=== PATIENT | female | born 1985 | race Two or more races ===

== ENCOUNTER 2018-04-20 20:55 | Observation (INO) | payer MEDICAID ==
[~2018-04-20] VITALS: Ht 152.4 cm; Wt 69.3 kg
[~2018-04-20 20:55] MED LIST: ASPI-496 PO
[2018-04-20 21:39] LABS: BASOPHILS # (AUTO) 0.06 x10^3/uL (0-0.1); BASOPHILS % (AUTO) 1 % (0-1); EOSINOPHILS # (AUTO) 0.08 x10^3/uL (0-0.4); EOSINOPHILS % (AUTO) 1 % (1-7); LYMPHOCYTES # (AUTO) 1.44 x10^3/uL (1-3.4); LYMPHOCYTES % (AUTO) 15 % (22-44); MD NO; MEAN CORPUSCULAR HEMOGLOBIN 32.7 pg (27.0-34.8); MEAN CORPUSCULAR HGB CONC 34.3 g/dL (32.4-35.8); MEAN CORPUSCULAR VOLUME 95.3 fL (80-100); MEAN PLATELET VOLUME 7.3 fL (7.4-10.4); MONOCYTES # (AUTO) 0.58 x10^3/uL (0.2-0.8); MONOCYTES % (AUTO) 6 % (2-9); NEUTROPHILS # (AUTO) 7.44 x10^3/uL (1.8-6.8); NEUTROPHILS % (AUTO) 78 % (42-75); PLATELET COUNT 317 x10^3/uL (130-400); RED BLOOD COUNT 4.69 x10^6/uL (3.82-5.3); RED CELL DISTRIBUTION WIDTH 13.6 % (9.6-15.2)
[2018-04-20 21:48] LABS: ALANINE AMINOTRANSFERASE 22 U/L (12-78); ALBUMIN 3.4 g/dL (3.4-5.0); ANION GAP 9 mmol/L (5-15); CALCIUM 8.7 mg/dL (8.5-10.1); CHLORIDE 107 mmol/L (98-107); SALICYLATE LEVEL 4.2 mg/dL (2.8-20.0)
[2018-04-20 22:05] LABS: ALKALINE PHOSPHATASE 77 U/L (45-117); BILIRUBIN,TOTAL 0.3 mg/dL (0.2-1.0)
[2018-04-20 22:09] LABS: ACETAMINOPHEN < 2 mcg/mL (10-30)
[2018-04-20 23:14] LABS: AMPHETAMINE SCREEN, URINE Positive (Negative); BARBITURATE SCREEN, URINE Negative (Negative); BENZODIAZEPINE SCREEN, URINE Negative (Negative); CANNABINOID SCREEN, URINE Negative (Negative); COCAINE SCREEN, URINE Negative (Negative); METHADONE SCREEN, URINE Negative (Negative); OPIATE SCREEN, URINE Negative (Negative)
[2018-04-21] MEDS ORDERED: ACETAMINOPHEN 325 MG TABLET PO PRN (08:30)
[2018-04-21] MEDS ORDERED: ZIPRASIDONE 20MG CAPSULE PO PRN (08:30)
[2018-04-21] MEDS ORDERED: POLYETHYLENE GLYCOL 17 GM PACKET PO PRN (08:30)
[2018-04-21] MEDS ORDERED: ONDANSETRON ODT 4 MG PO PRN (08:30)
[2018-04-21] MEDS ORDERED: ZIPRASIDONE 20 MG INJ IM PRN (08:30)
[2018-04-21] MEDS ORDERED: BISACODYL 10 MG SUPP PR PRN (08:30)
[2018-04-21] MEDS ORDERED: DOCUSATE 100 MG CAPSULE PO PRN (08:30)
[2018-04-21] MEDS: PRENATAL VIT/IRON/FA 1 EACH TABLET PO SCH ×2 (10:00→11:20)
[2018-04-21 11:13] VITALS: BP 102/58
[2018-04-21 12:41] LABS: MICROSCOPIC INDICATED
[2018-04-21 12:53] LABS: CULTURE INDICATED? YES
[2018-04-21 13:41] VITALS: BP 102/58
[2018-04-21 19:25] VITALS: BP 105/66
[2018-04-22 07:30] VITALS: BP 95/66
[2018-04-22] MEDS ORDERED: SULFAMETH./TRIMETHOPRIM DS 800MG/160MG TABLET PO SCH ×2 (16:08→21:00)
[2018-04-22] MEDS ORDERED: SULF-169 PO (16:35)
[2018-04-22] MEDS ORDERED: DOCU-131 PO (16:35)
[2018-04-22] MEDS ORDERED: ONDA4TAB13 PO (16:35)
[2018-04-22] MEDS ORDERED: Prenatal Vit/Iron/Fa PO (16:35)
[2018-04-22] MEDS ORDERED: ACET325T14 PO (16:35)
== END 2018-04-22 18:20 ==
LOC: ED 22:32 → EDIP 04-21 08:12 → 2N 04-21 11:03
PROVIDERS: ADMIT Hospitalist; ATTEND Hospitalist
DX: O23.41 Unspecified infection of urinary tract in pregnancy, first trimester (principal); O99.321 Drug use complicating pregnancy, first trimester; O99.331 Smoking (tobacco) complicating pregnancy, first trimester; O99.341 Other mental disorders complicating pregnancy, first trimester; O9A.211 Injury, poisoning and certain other consequences of external causes complicating pregnancy, first trimester; F15.159 Other stimulant abuse with stimulant-induced psychotic disorder, unspecified; Z79.899 Other long term (current) drug therapy; Z3A.11 11 weeks gestation of pregnancy
CPT/HCPCS: 36415; 76815; 80053; 80307; 80329; 81001; 84702; 84703; 85025; 87077; 87086; 87186; 99285; G0378; G0480

== ENCOUNTER 2018-06-01 22:33 | Emergency (ER) | payer MEDICAID ==
[~2018-06-01] VITALS: Ht 170.2 cm; Wt 71.3 kg
[~2018-06-01 22:33] MED LIST changes: +ACET325T14 PO; +DOCU-131 PO; +ONDA4TAB13 PO; +Prenatal Vit/Iron/Fa PO; +SULF-169 PO
[2018-06-01 22:36] VITALS: BP 116/50
[2018-06-01] MEDS ORDERED: KETOROLAC 30 MG/1 ML ONE (23:22)
[2018-06-01] MEDS: KETOROLAC 30 MG/1 ML IM ONE ×2 (23:25→23:31)
[2018-06-01 23:36] LABS: HCG UR SG 1.035 (1.003-1.030); MICROSCOPIC NOT IND
[2018-06-01 23:38] LABS: CULTURE INDICATED? NO
== END 2018-06-02 00:05 | disposition home or self-care (01) ==
LOC: ED 23:34
DX: O26.891 Other specified pregnancy related conditions, first trimester (principal); M54.6 Pain in thoracic spine; Z3A.01 Less than 8 weeks gestation of pregnancy
CPT/HCPCS: 72072; 81003; 81025; 99285; J1885

== ENCOUNTER 2018-09-30 12:14 | Emergency (ER) | payer MEDICAID, OTHER ==
[2018-09-30] MEDS ORDERED: PREN1TAB28 PO (12:28)
--- NOTE | 2018-09-30 12:29 | NUR ---
PB BIB EMS FOR NAUSEA UPON AWAKENING THIS AM (RESOLVED NOW) AND CONCERNS OF LOGAN/ROSS CONTRACTIONS. PER PATIENT SHE IS HAVING CONTRACTIONS APPROX 1 PER HOUR. PT HAS COMES FROM [facility] WITH STAFF MEMBER WITH HER. Addendum: 09/30/18 at 1229 by GHISLAINE PATIENT IS ON A LEGAL HOLD AND WAS ADMITTED TO [facility] FOR INABILITY TO CARE FOR SELF, PSYCHOSOS. PT DENIES SI/HI.
--- NOTE | 2018-09-30 12:38 | NUR ---
SBAR RPT REC'D FROM IVET RICK AND ASSUMED PT CARE. DR KENDALL AT BEDSIDE. [facility] CHART REVIEWED. PTS ANSWERS TO QUESTIONS REGARDING SUBSTANCE ABUSE ARE ALL NEGATIVE WHICH IS IN CONTRAST TO [facility] DOCUMENTATION. [facility] STAFF MEMBER SITTER AT DOORWAY. PT IS ON LEGAL HOLD.
--- NOTE | 2018-09-30 12:42 | NUR ---
CALLED L/D TO REQUEST AN RN TO COME DOWN TO THE ED TO ASSESS HEART TONES. L/D TO SEND RN.
--- NOTE | 2018-09-30 13:12 | NUR ---
VANESSAAR RPT TO IVET PANCHAL
--- NOTE | 2018-09-30 13:14 | NUR ---
DARION FROM L&D [facility] PT HAS BEEN CLEARED FROM THEIR STANDPOINT AND IS OKAY TO STAY IN ED. PER DR. KENDALL PT HAS BEEN MEDICALLY CLEARED. PT TO RETURN TO [facility].
[2018-09-30 13:48] LABS: BASOPHILS # (AUTO) 0.01 x10^3/uL (0-0.1); BASOPHILS % (AUTO) 0 % (0-1); EOSINOPHILS # (AUTO) 0.03 x10^3/uL (0-0.4); EOSINOPHILS % (AUTO) 1 % (1-7); LYMPHOCYTES # (AUTO) 0.74 x10^3/uL (1-3.4); LYMPHOCYTES % (AUTO) 11 % (22-44); MD NO; MEAN CORPUSCULAR HEMOGLOBIN 30.6 pg (27.0-34.8); MEAN CORPUSCULAR VOLUME 92.5 fL (80-100); MONOCYTES # (AUTO) 0.49 x10^3/uL (0.2-0.8); MONOCYTES % (AUTO) 7 % (2-9); NEUTROPHILS # (AUTO) 5.45 x10^3/uL (1.8-6.8); NEUTROPHILS % (AUTO) 81 % (42-75); PLATELET COUNT 318 x10^3/uL (130-400); RED BLOOD COUNT 3.49 x10^6/uL (3.82-5.3); RED CELL DISTRIBUTION WIDTH 15.7 % (9.6-15.2)
[2018-09-30 13:53] VITALS: BP 104/62
--- NOTE | 2018-09-30 13:53 | NUR ---
REPORT TO IVET ADAIR.
[2018-09-30] MEDS ORDERED: AZITHROMYCIN 250 MG TABLET PO ONE (14:00)
[2018-09-30] MEDS ORDERED: ALBUTEROL/IPRATROPIUM 2.5MG/0.5MG, 3 ML NPPB SCH (14:00)
--- NOTE | 2018-09-30 14:06 | NUR ---
REPORT GIVEN TO CHRISTINE AT [facility].
--- NOTE | 2018-09-30 15:26 | NUR ---
PT AMB IN ROOM, SITTER AT DOOR. PT PROVIDED WITH MEAL. AWAITING TRANSPORT BACK TO [facility].
--- NOTE | 2018-09-30 15:31 | NUR ---
SPOKE WITH LEOBARDO AT [facility]
--- NOTE | 2018-09-30 18:38 | NUR ---
EMS HERE TO TRANSPORT PT BACK TO [facility]. PT LEFT AMB WITH [facility] SITTER. PT COOPERATIVE CARE.
== END 2018-09-30 18:41 ==
LOC: ED 12:59
DX: O26.893 Other specified pregnancy related conditions, third trimester (principal); Z3A.32 32 weeks gestation of pregnancy; R10.30 Lower abdominal pain, unspecified; R11.2 Nausea with vomiting, unspecified; Z72.9 Problem related to lifestyle, unspecified
CPT/HCPCS: 36415; 59025; 85025; 93005; 99284; 99285

== ENCOUNTER 2019-08-25 19:06 | Emergency (ER) | payer MEDICAID, OTHER ==
[~2019-08-25] VITALS: Ht 170.2 cm; Wt 90.0 kg
[~2019-08-25 19:06] MED LIST changes: +PREN1TAB28 PO
[2019-08-25 19:10] VITALS: BP 128/79
[2019-08-25 19:26] LABS: BASOPHILS # (AUTO) 0.02 x10^3/uL (0-0.1); BASOPHILS % (AUTO) 0 % (0-1); EOSINOPHILS # (AUTO) 0.08 x10^3/uL (0-0.4); EOSINOPHILS % (AUTO) 1 % (1-7); LYMPHOCYTES # (AUTO) 0.84 x10^3/uL (1-3.4); LYMPHOCYTES % (AUTO) 11 % (22-44); MD NO; MEAN CORPUSCULAR HEMOGLOBIN 32.1 pg (27.0-34.8); MEAN CORPUSCULAR HGB CONC 33.8 g/dL (32.4-35.8); MEAN CORPUSCULAR VOLUME 95.1 fL (80-100); MEAN PLATELET VOLUME 7.2 fL (7.4-10.4); MONOCYTES # (AUTO) 0.48 x10^3/uL (0.2-0.8); MONOCYTES % (AUTO) 6 % (2-9); NEUTROPHILS # (AUTO) 6.44 x10^3/uL (1.8-6.8); NEUTROPHILS % (AUTO) 82 % (42-75); PLATELET COUNT 273 x10^3/uL (130-400); RED BLOOD COUNT 4.75 x10^6/uL (3.82-5.3); RED CELL DISTRIBUTION WIDTH 13.1 % (9.6-15.2)
[2019-08-25 19:34] LABS: ALANINE AMINOTRANSFERASE 32 U/L (12-78); ALBUMIN 3.6 g/dL (3.4-5.0); ANION GAP 6 mmol/L (5-15); CALCIUM 8.3 mg/dL (8.5-10.1); CHLORIDE 108 mmol/L (98-107); SALICYLATE LEVEL 5.4 mg/dL (2.8-20.0)
[2019-08-25 19:40] LABS: ALKALINE PHOSPHATASE 91 U/L (45-117); BILIRUBIN,TOTAL 0.6 mg/dL (0.2-1.0); CREATININE 0.63 mg/dL (0.55-1.02); TOTAL PROTEIN 8.1 g/dL (6.4-8.2)
[2019-08-25 21:02] LABS: AMPHETAMINE SCREEN, URINE Positive (Negative); BARBITURATE SCREEN, URINE Negative (Negative); BENZODIAZEPINE SCREEN, URINE Negative (Negative); CANNABINOID SCREEN, URINE Negative (Negative); COCAINE SCREEN, URINE Negative (Negative); METHADONE SCREEN, URINE Negative (Negative); OPIATE SCREEN, URINE Negative (Negative)
== END 2019-08-25 23:58 | disposition home or self-care (01) ==
LOC: ED 23:50
DX: F15.150 Other stimulant abuse with stimulant-induced psychotic disorder with delusions (principal); F15.129 Other stimulant abuse with intoxication, unspecified; Z72.9 Problem related to lifestyle, unspecified
CPT/HCPCS: 36415; 80053; 80307; 84703; 85025; 99283

== ENCOUNTER 2019-11-04 01:10 | Emergency (ER) | payer MEDICAID ==
[~2019-11-04] VITALS: Ht 154.9 cm; Wt 73.1 kg
[2019-11-04 01:12] VITALS: BP 111/52
[2019-11-04] MEDS ORDERED: LIDOCAINE-MPF 1%, 2ML ONE (01:25)
[2019-11-04] MEDS ORDERED: LIDOCAINE-MPF 1%, 5ML INFIL ONE (01:30)
--- NOTE | 2019-11-04 01:39 | NUR ---
PT REPORTS RING STUCK ON LEFT THIRD FINGER X1 MONTH.
--- NOTE | 2019-11-04 01:40 | NUR ---
THIS TECH REMOVED RING FROM L MIDDLE FINGER USING MANUAL RING CUTTER
[2019-11-04] MEDS ORDERED: SULFAMETH./TRIMETHOPRIM DS 800MG/160MG TABLET ONE (01:57)
[2019-11-04] MEDS ORDERED: DIPH,PERTUSS(ACELL),TET VAC/PF 0.5 ML IM-VACC ONE ×2 (01:58→02:00)
[2019-11-04] MEDS ORDERED: NEOSPORIN OINT. PKT 1 PACKET ONE (01:58)
[2019-11-04] MEDS ORDERED: SULFAMETH./TRIMETHOPRIM DS 800MG/160MG TABLET PO ONE (02:00)
== END 2019-11-04 02:35 | disposition home or self-care (01) ==
LOC: ED 01:50
DX: S60.443A External constriction of left middle finger, initial encounter (principal); W49.04XA Ring or other jewelry causing external constriction, initial encounter; Y93.89 Activity, other specified; Y92.89 Other specified places as the place of occurrence of the external cause; Y99.8 Other external cause status
CPT/HCPCS: 64450; 90471; 90715; 99284

== ENCOUNTER 2020-01-12 22:22 | Emergency (ER) | payer MEDICAID ==
[~2020-01-12] VITALS: Ht 157.5 cm; Wt 72.0 kg
[2020-01-12] MEDS ORDERED: LORazepam 2 MG/ML, 1ML ONE (22:48)
[2020-01-12] MEDS ORDERED: PLEASE ENTER ALLERGIES MC SCH (23:00)
[2020-01-12] MEDS ORDERED: LORazepam 2 MG/ML, 1ML IVPush ONE (23:00)
[2020-01-12] MEDS ORDERED: SODIUM CHLORIDE 0.9% 1,000ML IVBOLUS ONE ×2 (23:00→23:30)
[2020-01-12 23:02] LABS: ANION GAP 6 mmol/L (5-15); CALCIUM 8.6 mg/dL (8.5-10.1); CHLORIDE 107 mmol/L (98-107); CREATININE 2.08 mg/dL (0.55-1.02)
[2020-01-12 23:03] LABS: ALANINE AMINOTRANSFERASE 19 U/L (12-78); ALBUMIN 3.5 g/dL (3.4-5.0)
[2020-01-12 23:04] LABS: BASOPHILS # (AUTO) 0.01 x10^3/uL (0-0.1); BASOPHILS % (AUTO) 0 % (0-1); EOSINOPHILS # (AUTO) 0.03 x10^3/uL (0-0.4); EOSINOPHILS % (AUTO) 1 % (1-7); LYMPHOCYTES # (AUTO) 0.77 x10^3/uL (1-3.4); LYMPHOCYTES % (AUTO) 11 % (22-44); MD NO; MEAN CORPUSCULAR HEMOGLOBIN 31.2 pg (27.0-34.8); MONOCYTES # (AUTO) 0.41 x10^3/uL (0.2-0.8); MONOCYTES % (AUTO) 6 % (2-9); NEUTROPHILS # (AUTO) 5.68 x10^3/uL (1.8-6.8); NEUTROPHILS % (AUTO) 82 % (42-75); PLATELET COUNT 374 x10^3/uL (130-400); RED BLOOD COUNT 3.75 x10^6/uL (3.82-5.3); RED CELL DISTRIBUTION WIDTH 12.9 % (9.6-15.2)
[2020-01-12 23:07] LABS: ALKALINE PHOSPHATASE 99 U/L (45-117); BILIRUBIN,TOTAL 0.9 mg/dL (0.2-1.0)
--- NOTE | 2020-01-12 23:13 | NUR ---
PT ABLE TO GIVE HER NAME AT THIS TIME. UNABLE TO LEAVE URINE SAMPLE AT THIS TIME.
--- NOTE | 2020-01-12 23:27 | NUR ---
ASSISTED PT TO RESTROOM FOR URINE SAMPLE.
[2020-01-12 23:41] LABS: MICROSCOPIC INDICATED
[2020-01-12 23:50] LABS: AMPHETAMINE SCREEN, URINE Positive (Negative); BARBITURATE SCREEN, URINE Negative (Negative); BENZODIAZEPINE SCREEN, URINE Negative (Negative); CANNABINOID SCREEN, URINE Negative (Negative); COCAINE SCREEN, URINE Negative (Negative); METHADONE SCREEN, URINE Negative (Negative); OPIATE SCREEN, URINE Negative (Negative)
--- NOTE | 2020-01-12 23:58 | NUR ---
PROVIDED PT WITH SNACKS.
[2020-01-13] MEDS ORDERED: CEFTRIAXONE PMX 1GM/50ML 50 ML IVPB ONE (01:00)
--- NOTE | 2020-01-13 01:10 | NUR ---
BACK FROM CT. PT RESTING ON TEE.
--- NOTE | 2020-01-13 01:14 | NUR ---
LAB AT BEDSIDE FOR BLOOD CULTURES.
[2020-01-13] MEDS ORDERED: CEFTRIAXONE PMX 1GM/50ML 50 ML ONE (01:38)
[2020-01-13 02:49] VITALS: BP 123/57
--- NOTE | 2020-01-13 03:34 | NUR ---
PT AWAKE, TALKING AND COOPERATIVE. PROVIDED PT WITH PANTS AND SOCKS FOR DISCHARGE.
== END 2020-01-13 03:48 | disposition home or self-care (01) ==
LOC: MERGE 22:22 → EDBD 22:22 → ED 01-13 00:20
DX: N30.01 Acute cystitis with hematuria (principal); F15.129 Other stimulant abuse with intoxication, unspecified; R79.89 Other specified abnormal findings of blood chemistry
CPT/HCPCS: 36415; 71045; 74176; 80053; 80307; 81001; 82550; 83605; 84703; 85025; 87040; 87077; 87086; 87186; 93005; 96361; 96365; 96375; 99285; J0696; J2060; J7030

== ENCOUNTER 2020-01-18 13:16 | Emergency (ER) | payer MEDICAID ==
[~2020-01-18] VITALS: Ht 162.6 cm; Wt 75.0 kg
--- NOTE | 2020-01-18 13:25 | NUR ---
BREAK RN: PT LAYING ON RIGHT SIDE. AFTER TOUCHING PT, PT RAISES LEFT ARM AND PUSHES RN HAND AWAY. "DONT FUCKING TOUCH ME, YOU RAPIST" MICK TINOCO AT BEDSIDE. PT CONT ON RIGHT SIDE REFUSING TO ANSWER QUESTIONS. NOT ACKNOWLEDGING STAFF, WILL NOT PUT ON GOWN.
--- NOTE | 2020-01-18 13:33 | NUR ---
DR SINGH AT BEDSIDE TO [facility] PT
--- NOTE | 2020-01-18 14:03 | NUR ---
REPORT TO MANSOOR COONEY.
--- NOTE | 2020-01-18 14:28 | NUR ---
HOME SUPPORT WORKER: PT MOVED TO ROOM 2
--- NOTE | 2020-01-18 14:43 | NUR ---
DARELL VALERIO. ELTON PRESENT.
--- NOTE | 2020-01-18 15:33 | NUR ---
PT PACING AROUND ROOM, WILL OCCASIONALY YELL AND STARTE AT PEOPLE IN HALLS. SITTER PRESENT
[2020-01-18] MEDS ORDERED: HALOPERIDOL 5 MG/ML IM PRN (16:30)
--- NOTE | 2020-01-18 16:34 | NUR ---
PT NOW SLEEPING. SITTER PRESENT
--- NOTE | 2020-01-18 17:08 | NUR ---
THROUGHPUT RN: LORENE Flores/ ABBY IN [facility] WHO STATES THEY ARE LOOKING INTO PATIENT'S CHART.
[2020-01-18] MEDS ORDERED: HALOPERIDOL 5 MG/ML ONE (17:17)
--- NOTE | 2020-01-18 17:27 | NUR ---
PT YELLING AND AGITATED. MEDICATED PER ORDERS.
--- NOTE | 2020-01-18 18:11 | NUR ---
PT VERBALLY AGRESSIVE TOWARDS STAFF AND YELLING LOUDLY. PT USES INAPPROPIATE LANGUAGE. SITTER PRESENT. REFUSING MEAL TRAY.
--- NOTE | 2020-01-18 18:32 | NUR ---
PT WAS COOPERATIVE TO DRAW LABS
[2020-01-18 18:36] LABS: BASOPHILS % (AUTO) 0 % (0-1); EOSINOPHILS # (AUTO) 0.03 x10^3/uL (0-0.4); EOSINOPHILS % (AUTO) 1 % (1-7); LYMPHOCYTES # (AUTO) 0.67 x10^3/uL (1-3.4); LYMPHOCYTES % (AUTO) 12 % (22-44); MD NO; MEAN CORPUSCULAR HEMOGLOBIN 30.6 pg (27.0-34.8); MEAN CORPUSCULAR HGB CONC 33.7 g/dL (32.4-35.8); MEAN CORPUSCULAR VOLUME 90.7 fL (80-100); MEAN PLATELET VOLUME 7.2 fL (7.4-10.4); MONOCYTES # (AUTO) 0.31 x10^3/uL (0.2-0.8); MONOCYTES % (AUTO) 6 % (2-9); NEUTROPHILS # (AUTO) 4.51 x10^3/uL (1.8-6.8); NEUTROPHILS % (AUTO) 82 % (42-75); PLATELET COUNT 295 x10^3/uL (130-400); RED BLOOD COUNT 3.53 x10^6/uL (3.82-5.3)
[2020-01-18 18:45] LABS: ALBUMIN 3.2 g/dL (3.4-5.0); CALCIUM 8.7 mg/dL (8.5-10.1)
--- NOTE | 2020-01-18 18:49 | NUR ---
REPORT TO RENU
--- NOTE | 2020-01-18 18:50 | NUR ---
assumed care of pt. report from Migue COONEY. pt hre for SI and aggressive behavio. per report, pt is on a hold. belongings have been removed by previous RN and room secure. pt refuses to engage in conversation with his RN or participate in assessment. pt resting on gurney with her back to the door. sitter present for safety. pt has been notified that urine sample needed but pt refuses to provide sample at this time. pt in no visible distress. pt has had meal tray delivered but is not currently eating. will continue to monitor
[2020-01-18 18:51] LABS: ALANINE AMINOTRANSFERASE 15 U/L (12-78); ALKALINE PHOSPHATASE 90 U/L (45-117); BILIRUBIN,TOTAL 0.5 mg/dL (0.2-1.0); CREATININE 1.41 mg/dL (0.55-1.02); TOTAL PROTEIN 8.9 g/dL (6.4-8.2)
[2020-01-18 18:54] LABS: ANION GAP 5 mmol/L (5-15); CHLORIDE 111 mmol/L (98-107)
--- NOTE | 2020-01-18 20:05 | NUR ---
have attempted again to get pt to give urine sample, but pt uncooperative at this time. pt drowsy. consents to VS check after mulitple prompts room secure. sitter at bedside for safety
--- NOTE | 2020-01-18 21:00 | NUR ---
no changes. pt still will not engage in conversation with this RN. pt will not consent to give urine sample no apparent distress. dozing intermittently. room secure. sitter present for safety
--- NOTE | 2020-01-18 22:40 | NUR ---
pt is dozing intermittently. no new c/o. no apparent distress room secure. sitter present for safety. will continue to monitor
--- NOTE | 2020-01-18 23:45 | NUR ---
no changes. pt sleeping in position of comfort. no apparent distress. room secure. sitter present for safety
--- NOTE | 2020-01-19 00:43 | NUR ---
report to Markus COONEY for lunch
--- NOTE | 2020-01-19 00:48 | NUR ---
Break RN: ice water provided.
--- NOTE | 2020-01-19 01:40 | NUR ---
no changes. pt sleeping in position of comfort. no apparent distress room secure. sitter present for safety
--- NOTE | 2020-01-19 02:13 | NUR ---
have made mulitple attempts to get pt to provide urine sample. pt will not cooperate. pt making statements: "is that a god thing?" "you are trying to read my tires!" pt baring her teeth and will not converse with RN. attempted to attain updated VS, pt uncooperative room secure. sitter present for safety. will continue to monitor
--- NOTE | 2020-01-19 03:44 | NUR ---
pt sleeping. room secure. sitter prsent for safety
--- NOTE | 2020-01-19 04:28 | NUR ---
pt continues sleeping in position of comfort. room secure. sitter present for safety
--- NOTE | 2020-01-19 05:15 | NUR ---
no changes. pt sleepung in position of comfort. no apparent distress. room secure. sitter present for safety
--- NOTE | 2020-01-19 06:22 | NUR ---
pt sleeping. attempted again to have pt go to the BR for urine sample. pt uncooperative. pt will not speak. pt keeping her back to the door. pt uncooperative with VS. pt moving on gurney and in no apparent resp. distress. awaiting meal tray to be delivered room secure. sitter present for safety
--- NOTE | 2020-01-19 06:56 | NUR ---
BEDSIDE REPORT RECEIVED FROM CHARLIE SEARS RN. PT RESTING ON [place]. NADN. SITTER REMAINS AT BEDSIDE. ROOM REMAINS SECURE. AWARE THAT PT HAS REFUSED TO PROVIDE UA YESTERDAY AND THROUGHOUT THE NIGHT. WILL ATTEMPT TO GET UA AND CHANGE PT TO HOSPITAL BED. HOUSEKEEPING NOTIFIED OF NEED FOR HOSPITAL BED.
--- NOTE | 2020-01-19 07:02 | NUR ---
bedside report to Dina COONEY
--- NOTE | 2020-01-19 07:18 | NUR ---
PT MOVED FROM [facility] TO [facility] BED. UA COLLECTED, LABELED, AND SENT TO LAB.
[2020-01-19 07:34] LABS: MICROSCOPIC INDICATED
[2020-01-19 07:39] LABS: AMPHETAMINE SCREEN, URINE Positive (Negative); BARBITURATE SCREEN, URINE Negative (Negative); BENZODIAZEPINE SCREEN, URINE Negative (Negative); CANNABINOID SCREEN, URINE Negative (Negative); COCAINE SCREEN, URINE Negative (Negative); METHADONE SCREEN, URINE Negative (Negative); OPIATE SCREEN, URINE Negative (Negative)
--- NOTE | 2020-01-19 08:09 | NUR ---
THROUGHPUT: PT ON LEGAL HOLD, MEDICALLY CLEARED FAX TO [facility], RECEIVED FAX CONFIRMATION
[2020-01-19 08:15] VITALS: BP 113/78
--- NOTE | 2020-01-19 08:19 | NUR ---
PT PROVIDED W/ SI BREAKFAST TRAY. OMARS. PEPPER. SITTER REMAINS AT BEDSIDE. ROOM REMAINS SECURE.
--- NOTE | 2020-01-19 09:38 | NUR ---
PHI: PER [facility] PT IS DENIES. FAXED TO [facility], [facility], [facility] RECEIVED FAX CONFIRMATION
--- NOTE | 2020-01-19 09:40 | NUR ---
PT RESTING IN BED. NADN. SITTER REMAINS AT BEDSIDE. ROOM REMAINS SECURE.
--- NOTE | 2020-01-19 10:10 | NUR ---
PT RESTING IN BED. NADN. SITTER REMAINS AT BEDSIDE. ROOM REMAINS SECURE.
--- NOTE | 2020-01-19 11:11 | NUR ---
REPORT GIVEN TO , RECEIVING RN AT [facility]. ALL QUESTIONS ANSWERED.
--- NOTE | 2020-01-19 11:14 | NUR ---
PT RESTING IN BED. NADN. SITTER REMAINS AT BEDSIDE. ROOM REMAINS SECURE.
--- NOTE | 2020-01-19 11:15 | NUR ---
THROUGHPUT: RECEIVED AN ACCEPTING , DR. TRAMMELL AT [facility], KRISTIN SIGNED, PACKET MADE, CALLED [facility] PER AUTOMATED SYSTEM NO TRAVEL BENIFITS. CALLED JULIASA, PLANT ELECTRICAL ENGINEER AT 1400
--- NOTE | 2020-01-19 12:03 | NUR ---
PT PROVIDED W/ SI LUNCH TRAY. PT RESTING IN BED. NADN. SITTER REMAINS AT BEDSIDE. ROOM REMAINS SECURE.
--- NOTE | 2020-01-19 13:11 | NUR ---
I AM ASSUMING CARE OF THIS PT FROM CARLA (IVET) AT THIS TIME. SBAR REPORT WAS EXCHANGED AT THE BEDSIDE.
--- NOTE | 2020-01-19 13:12 | NUR ---
REPORT GIVEN TO IVET POWELL.
== END 2020-01-19 14:31 ==
LOC: ED 14:36
DX: F19.150 Other psychoactive substance abuse with psychoactive substance-induced psychotic disorder with delusions (principal); R00.0 Tachycardia, unspecified
CPT/HCPCS: 36415; 80053; 80307; 81001; 84703; 85025; 96372; 99285; J1630